=== PATIENT | female | born 1970 | race Caucasian/White ===

== ENCOUNTER → 2021-01-19 | Outpatient (CLI) | payer OTHER ==
[2021-01-19 16:33] LABS: ALBUMIN 4.2 GM/DL (3.2-4.5); CHLORIDE 108 MMOL/L (98-107); POTASSIUM 3.7 MMOL/L (3.6-5.0); SODIUM 140 MMOL/L (135-145)
[2021-01-19 16:34] LABS: CALCIUM 8.7 MG/DL (8.5-10.1); HEMOGLOBIN 14.3 g/dL (11.5-16.0); MEAN PLATELET VOLUME 11.3 fL (9.0-12.2); WHITE BLOOD COUNT 8.4 10^3/uL (4.3-11.0)
[2021-01-19 16:35] LABS: TRIGLYCERIDES 192 MG/DL (<150); VLDL CHOLESTEROL 38 MG/DL (5-40)
[2021-01-19 16:36] LABS: GLUCOSE 102 MG/DL (70-105); TOTAL PROTEIN 6.9 GM/DL (6.4-8.2)
[2021-01-19 16:37] LABS: CARBON DIOXIDE 24 MMOL/L (21-32)
[2021-01-19 16:38] LABS: BILIRUBIN,TOTAL 0.3 MG/DL (0.1-1.0)
[2021-01-19 16:39] LABS: ALKALINE PHOSPHATASE 81 U/L (40-136); CREATININE SERUM 0.75 MG/DL (0.60-1.30); GFR ESTIMATED > 60
[2021-01-19 16:40] LABS: CHOLESTEROL 178 MG/DL (< 200)
[2021-01-19 16:41] LABS: BUN/CREATININE RATIO 15
[2021-01-19 16:42] LABS: HDL CHOLESTEROL 36 MG/DL (40-60)
[2021-01-19 16:43] LABS: ALANINE AMINOTRANSFERASE 13 U/L (0-55)
[2021-01-19 17:04] LABS: FREE T4 (FREE THYROXINE) 0.96 NG/DL (0.70-1.48)
--- NOTE | 2021-01-19 19:06 | Diagnostic Imaging Report ---
PROCEDURE: MR imaging cervical spine without contrast. TECHNIQUE: Multiplanar, multisequence MR imaging of the cervical spine was performed without contrast. DATE: January 19, 2021. INDICATION: 50-year-old female, neck pain extending to the left shoulder and hand. COMPARISON: None. FINDINGS: The alignment of the cervical spine is unremarkable. There is no evidence of a diffuse marrow infiltrating or replacing process. There is no identified focal concerning bone lesion. There is no identified abnormal signal in the imaged portions of the spinal cord. The cervical disc heights are well preserved. C2-C3: There is no disc bulge. The facet and uncovertebral joints are unremarkable. There is no foraminal stenosis. There is no spinal stenosis. C3-C4: There is no disc bulge. The facet and uncovertebral joints are unremarkable. There is no foraminal stenosis. There is no spinal stenosis. C4-C5: There is no disc bulge. The facet and uncovertebral joints are unremarkable. There is no foraminal stenosis. There is no spinal stenosis. C5-C6: There is no disc bulge. The facet and uncovertebral joints are unremarkable. There is no foraminal stenosis. There is no spinal stenosis. C6-C7: There is no disc bulge. Facet and uncovertebral joints are unremarkable. There is no foraminal stenosis. There is no spinal stenosis. C7-T1: There is no disc bulge. The facet and uncovertebral joints are unremarkable. There is no foraminal stenosis. There is no spinal stenosis. IMPRESSION: Grossly unremarkable MRI of the cervical spine. Dictated by: Dictated on workstation # [id number]
== END ==
LOC: RAD 16:15
PROVIDERS: ATTEND Family Medicine
DX: M50.30 Other cervical disc degeneration, unspecified cervical region (principal)
CPT/HCPCS: 36415; 72141; 80053; 80061; 84439; 84443; 85027; 85652